=== PATIENT | female | born 1970 | race Caucasian/White ===

== ENCOUNTER → 2017-07-30 | Outpatient (CLI) | payer BC | END | disposition home or self-care (01) | LOC: CFH 08:54 | PROVIDERS: ATTEND Obstetrics & Gynecology | DX: Z12.31 Encounter for screening mammogram for malignant neoplasm of breast (principal) | CPT/HCPCS: 77063; G0202 ==

== ENCOUNTER → 2018-09-03 | Outpatient (CLI) | payer BC ==
[~2018-09-03] MED LIST: BIRTH CONTROL
[2018-09-03 10:04] LABS: MICROSCOPIC NOT IND
== END | disposition home or self-care (01) ==
LOC: STAR 07:47
PROVIDERS: ATTEND Urology
DX: Z01.818 Encounter for other preprocedural examination (principal); R35.1 Nocturia; R35.0 Frequency of micturition; R32 Unspecified urinary incontinence
CPT/HCPCS: 81003; 87086

== ENCOUNTER 2018-09-12 11:01 | Day surgery (SDC) | payer BC ==
[~2018-09-12] VITALS: Ht 167.6 cm; Wt 77.3 kg
[2018-09-12] MEDS ORDERED: LACTATED RINGERS 1,000 ML IV SCH (12:00)
[2018-09-12 12:41] LABS: HCG UR SG 1.021 (1.003-1.030)
[2018-09-12] MEDS ORDERED: AMPICILLIN 2 GM ONE (12:53)
[2018-09-12] MEDS ORDERED: GENTAMICIN 80 MG/2 ML ONE (12:53)
[2018-09-12] MEDS ORDERED: ESTROGENS CONJUGATED VAG CRM 0.625MG/1G, 30GM ONE (12:53)
[2018-09-12] MEDS ORDERED: THROMBIN 5,000 UNIT VIAL TP ONE (12:53)
[2018-09-12] MEDS ORDERED: LIDOCAINE 1%-EPI 1:100K, 30ML ONE (12:53)
[2018-09-12] MEDS ORDERED: BUPIVACAINE/PF-EPI 0.5% 1:200K ONE (12:53)
[2018-09-12] MEDS ORDERED: NEOMY/POLYMYXIN B GU IRR. 1 ML IRRIG ONE (12:54)
[2018-09-12] MEDS ORDERED: MIDAZOLAM 1 MG/ML, 2ML ONE (13:07)
[2018-09-12] MEDS ORDERED: FENTANYL PF 250 MCG/5ML ONE (13:08)
[2018-09-12] MEDS ORDERED: ROCURONIUM 10 MG/ML,10ML ONE (13:28)
[2018-09-12] MEDS ORDERED: DEXAMETHASONE 4 MG/ML, 1ML ONE (13:28)
[2018-09-12] MEDS ORDERED: ONDANSETRON 2MG/ML, 2ML ONE (13:28)
[2018-09-12] MEDS ORDERED: EPHEDRINE 50 MG/ML, 1ML ONE (13:28)
[2018-09-12] MEDS ORDERED: PROPOFOL 10 MG/ML, 20ML ONE (13:28)
[2018-09-12] MEDS ORDERED: SUCCINYLCHOLINE 20 MG/ML, 10ML ONE (13:28)
[2018-09-12] MEDS ORDERED: OXYcodone 5 MG/5 ML ORAL.SOL UDC PO PRN (14:30)
[2018-09-12] MEDS ORDERED: ONDANSETRON 2MG/ML, 2ML IV PRN (14:30)
[2018-09-12] MEDS ORDERED: PROMETHAZINE 25 MG/ML, 1ML IV PRN (14:30)
[2018-09-12] MEDS ORDERED: DIAZEPAM 5 MG/ML, 2ML IVPush PRN (14:30)
[2018-09-12] MEDS ORDERED: ACETAMINOPHEN 325 MG TABLET PO PRN (14:30)
[2018-09-12] MEDS ORDERED: ONDANSETRON ODT 8 MG PO PRN (14:30)
[2018-09-12] MEDS ORDERED: HYDROmorphone 2 MG/ML, 1ML IVPush PRN (14:30)
[2018-09-12] MEDS ORDERED: MEPERIDINE/PF 25MG/0.5ML IVPush PRN (14:30)
[2018-09-12] MEDS ORDERED: MEPERIDINE/PF 50 MG/ML ONE (14:42)
[2018-09-12] MEDS ORDERED: FENTANYL PF 100 MCG/2ML ONE (14:57)
[2018-09-12] MEDS ORDERED: ACETAMINOPHEN 650 MG/20.3 ML UDC ONE (14:57)
[2018-09-12] MEDS ORDERED: OXYcodone 5 MG/5 ML ORAL.SOL UDC ONE (14:58)
[2018-09-12] MEDS: FENTANYL PF 100 MCG/2ML IV PRN ×3 (15:00→15:15)
== END 2018-09-12 16:50 | disposition home or self-care (01) ==
LOC: OUT 11:01
PROVIDERS: ATTEND Urology
DX: N39.3 Stress incontinence (female) (male) (principal); N32.81 Overactive bladder; Z88.5 Allergy status to narcotic agent
CPT/HCPCS: 57288; 81025; C1771; J0290; J0330; J1100; J1580; J2175; J2250; J2405; J2704; J3010; J3490; J7120